=== PATIENT | female | born 1935 | race Hispanic/Latino ===

== ENCOUNTER → 2016-05-31 | Outpatient (CLI) | payer OTHER, MEDICAID ==
[2016-05-31 13:23] LABS: MEAN CORPUSCULAR HEMOGLOBIN 29.5 pg (27.0-33.0); MEAN CORPUSCULAR HGB CONC 32.3 g/dl (32.0-36.5); MEAN CORPUSCULAR VOLUME 91.4 fl (80.0-96.0); RED CELL DISTRIBUTION WIDTH 13.9 % (11.5-14.5)
[2016-05-31 14:07] LABS: ALBUMIN 3.8 GM/DL (3.2-5.2); ALKALINE PHOSPHATASE 76 U/L (45-117); ALT/SGPT 28 U/L (12-78); ANION GAP 9 MEQ/L (8-16); AST/SGOT 21 U/L (15-37); BILIRUBIN,TOTAL 0.3 MG/DL (0.2-1.0); BLOOD UREA NITROGEN 11 MG/DL (7-18); CALCIUM LEVEL 8.8 MG/DL (8.8-10.2); CARBON DIOXIDE LEVEL 28 MEQ/L (21-32); CHLORIDE LEVEL 107 MEQ/L (98-107); CREATININE FOR GFR 0.74 MG/DL (0.55-1.02); GLOMERULAR FILTRATION RATE > 60.0 (>39); GLUCOSE, FASTING 113 MG/DL (83-110); POTASSIUM SERUM 4.4 MEQ/L (3.5-5.1); SODIUM LEVEL 144 MEQ/L (136-145); TOTAL PROTEIN 7.6 GM/DL (6.4-8.2)
== END ==
LOC: M SMT 09:58
PROVIDERS: ATTEND Urology
DX: R10.9 Unspecified abdominal pain (principal)
CPT/HCPCS: 36415; 51798; 80053; 81001; 85027; 87088; 87186; G0463

== ENCOUNTER → 2016-06-14 | Outpatient (CLI) | payer OTHER, MEDICAID ==
[~2016-06-14] MED LIST: ISOVUE-370 76% 100ML VIAL (Q9967) As Ordered ONE
--- NOTE | 2016-06-14 17:16 | REP ---
CT urogram without and with IV contrast: History: Left flank pain. CT contrast dose: 100 ml of Isovue [address] findings: Preliminary digital instrumentation technician radiograph is unremarkable. The lung bases show ground-glass opacity and interstitial fibrosis pattern in the lower lobes bilaterally. No pleural effusion is seen. The liver and the spleen are normal in size and homogeneous in texture on pre- and postcontrast CT images. No focal hepatic lesion is seen. The gallbladder and the pancreas are unremarkable. No adrenal lesion is observed on either side. There are two calcifications in the central renal sinus fat on the left kidney. One of these is felt to be most likely vascular. The other is a 2-3 mm calculus at the corticomedullary junction at the mid pole level of the left kidney consistent with an intrarenal nephrolith. There is no evidence of hydronephrosis on either side. Vascular calcification is seen. Normal caliber aorta. A normal appendix is seen. The patient is status post hysterectomy. No urinary calculus or bladder lesions seen. Mild diverticulosis in the sigmoid colon. No abdominal wall defect is observed. The kidneys enhance symmetrically. No renal mass lesion is observed. Delayed images show no filling defect in the collecting system on either side. Ureters describe a normal course to the bladder. No bony destructive lesion is seen. Impression: 1. 2-3 mm intrarenal calculus left mid kidney. No other significant urinary tract abnormality. 2. Interstitial disease in the lung bases bilaterally. 3. Vascular calcification. Signed by Dirk Hollis MD 06/15/2016 09:29 A
--- NOTE | 2016-06-15 01:54 | REP ---
Clinical: Left flank pain. Comparison: 03/09/2016. Findings: Mediastinum and cardiac silhouette are normal. Left lower lobe atelectasis suggested. No obvious effusion or pneumothorax. Skeletal structures demonstrate age-related changes. Impression: Chronic changes. Subtle superimposed left lower lobe atelectasis suggested. Signed by Ronnie Nunez MD 06/15/2016 01:45 A
== END ==
LOC: M RAD 10:57
PROVIDERS: ATTEND Urology
DX: I70.0 Atherosclerosis of aorta (principal); N20.0 Calculus of kidney; J84.9 Interstitial pulmonary disease, unspecified; R10.9 Unspecified abdominal pain
CPT/HCPCS: 71010; 74178; Q9967

== ENCOUNTER → 2016-06-18 | Outpatient (REF) | payer OTHER | LOC: M SMT 13:50 → EEVIPCON 13:50 | PROVIDERS: ATTEND Urology | DX: R31.9 Hematuria, unspecified (principal) | CPT/HCPCS: 81001; 87088; 87186; G0463 ==

== ENCOUNTER → 2016-06-22 | Outpatient (REF) | payer OTHER | LOC: M LAB REF 16:49 | PROVIDERS: ATTEND Family Medicine | DX: C44.529 Squamous cell carcinoma of skin of other part of trunk (principal); L82.1 Other seborrheic keratosis ==

== ENCOUNTER → 2016-07-10 | Outpatient (REF) | payer OTHER | LOC: M SMT 12:45 | PROVIDERS: ATTEND Urology | DX: R10.9 Unspecified abdominal pain (principal) ==

== ENCOUNTER → 2016-07-12 | Outpatient (REF) | payer OTHER, MEDICAID | LOC: M SMT 12:45 | PROVIDERS: ATTEND Urology | DX: N39.0 Urinary tract infection, site not specified (principal) | CPT/HCPCS: 81001; 87088; 87186; G0463 ==

== ENCOUNTER → 2016-07-31 | Outpatient (REF) | payer OTHER, MEDICAID | LOC: M LAB REF 13:11 | PROVIDERS: ATTEND Physician Assistant Medical | DX: R30.0 Dysuria (principal) ==

== ENCOUNTER → 2016-08-03 | Outpatient (REF) | payer OTHER, MEDICAID | LOC: M SMT 16:55 | PROVIDERS: ATTEND Urology | DX: N39.0 Urinary tract infection, site not specified (principal) ==

== ENCOUNTER → 2016-08-27 | Outpatient (REF) | payer OTHER, MEDICAID | LOC: M SMT 12:57 | PROVIDERS: ATTEND Nurse Practitioner Women's Health | DX: N39.0 Urinary tract infection, site not specified (principal) | CPT/HCPCS: 51702; 87088; 87186; G0463 ==

== ENCOUNTER → 2016-09-21 | Outpatient (REF) | payer OTHER, MEDICAID | LOC: M SMT 13:05 | PROVIDERS: ATTEND Urology | DX: N39.0 Urinary tract infection, site not specified (principal) | CPT/HCPCS: 81001; 87088; 87186; G0463 ==

== ENCOUNTER → 2016-09-26 | Outpatient (REF) | payer OTHER, MEDICARE | LOC: M LAB REF 16:31 | PROVIDERS: ATTEND Physician Assistant | DX: R05 Cough (principal) ==

== ENCOUNTER → 2016-10-18 | Outpatient (CLI) | payer OTHER ==
--- NOTE | 2016-10-19 03:42 | REP ---
Clinical: Pain overlying the xyphoid process and right upper quadrant. Technique: Real time coleman scale and color ultrasound examination using linear high frequency and curved array transducers. Findings: The liver and pancreas are normal in contour, size, and echogenicity without focal hepatic or pancreatic lesions identified. The gallbladder is normal without gallstones, wall thickening or pericholecystic fluid. No biliary ductal dilatation is appreciated, and the common bile duct measures 7.0 mm diameter. The right kidney is normal in reniform shape without hydronephrosis and measures 10.6 x 5.1 x 5.2 cm. No ascites. Visualized portions of the abdominal aorta normal. Directed ultrasound examination overlying the xyphoid process demonstrates an underlying avascular hypoechoic lesion measuring 1.6 x 1.3 x 1.6 cm and is otherwise nonspecific by ultrasound; possibly intramuscular. Overall appearance by ultrasound is relatively benign and not threatening. Impression: 1. Normal right upper quadrant and gallbladder abdominal ultrasound. 2. 1.6 cm hypoechoic lesion at the level of the xyphoid process and site of pain/mass. Finding is nonspecific by ultrasound but appears relatively benign. If necessary consider postcontrast CT for further investigation. Signed by Ronnie Nunez MD 10/19/2016 03:34 A
== END ==
LOC: M RAD 09:49
PROVIDERS: ATTEND Family Medicine
DX: D48.1 Neoplasm of uncertain behavior of connective and other soft tissue (principal)

== ENCOUNTER → 2016-10-22 | Outpatient (REF) | payer OTHER, MEDICAID | LOC: M LAB REF 13:33 | PROVIDERS: ATTEND Urology | DX: N39.0 Urinary tract infection, site not specified (principal) | CPT/HCPCS: 81001; 87088; 87186; G0463 ==

== ENCOUNTER → 2017-06-17 | Outpatient (REF) | payer OTHER, MEDICAID ==
[2017-06-17 16:38] LABS: D-DIMER QUANT 480.5 ng/ml (<500)
[2017-06-17 16:48] LABS: ERYTHROCYTE SEDIMENTATION RATE 48 mm/hr (0-30)
[2017-06-17 16:57] LABS: BLOOD UREA NITROGEN 12 MG/DL (7-18); CREATININE FOR GFR 0.62 MG/DL (0.55-1.30); GLOMERULAR FILTRATION RATE > 60.0 (>32); GLUCOSE, FASTING 147 MG/DL (70-100)
[2017-06-17 16:58] LABS: ALBUMIN 3.5 GM/DL (3.2-5.2); ALKALINE PHOSPHATASE 73 U/L (45-117); ALT/SGPT 20 U/L (12-78); ANION GAP 7 MEQ/L (8-16); AST/SGOT 11 U/L (7-37); BILIRUBIN,TOTAL 0.2 MG/DL (0.2-1.0); C REACTIVE PROTEIN QUANTITATIV 0.61 MG/DL (0.00-0.30); CALCIUM LEVEL 8.5 MG/DL (8.8-10.2); CARBON DIOXIDE LEVEL 27 MEQ/L (21-32); CHLORIDE LEVEL 108 MEQ/L (98-107); CPK CREATINE PHOSPHOKINASE 41 U/L (26-192); MAGNESIUM LEVEL 2.1 MG/DL (1.8-2.4); POTASSIUM SERUM 4.5 MEQ/L (3.5-5.1); SODIUM LEVEL 142 MEQ/L (136-145); URIC ACID 6.1 MG/DL (2.6-6.0)
== END ==
LOC: M LABDRAW1 15:32
DX: M79.652 Pain in left thigh (principal)
CPT/HCPCS: 82550

== ENCOUNTER → 2017-08-21 | Outpatient (CLI) | payer OTHER, MEDICARE, MEDICAID | LOC: M PAIN 15:50 | DX: M25.562 Pain in left knee (principal); G89.29 Other chronic pain; E11.9 Type 2 diabetes mellitus without complications; E78.00 Pure hypercholesterolemia, unspecified; M19.90 Unspecified osteoarthritis, unspecified site; E07.9 Disorder of thyroid, unspecified; N39.0 Urinary tract infection, site not specified; Z79.899 Other long term (current) drug therapy; Z87.891 Personal history of nicotine dependence | CPT/HCPCS: G0463 ==

== ENCOUNTER → 2017-09-05 | Outpatient (REF) | payer OTHER, MEDICARE, MEDICAID | LOC: M LAB REF 13:35 | DX: R19.7 Diarrhea, unspecified (principal) | CPT/HCPCS: 87507 ==

== ENCOUNTER 2017-10-07 08:08 | Outpatient (RCR) | payer OTHER, MEDICAID | END 2017-11-02 | LOC: M PT 08:08 | DX: Z47.89 Encounter for other orthopedic aftercare (principal); M23.262 Derangement of other lateral meniscus due to old tear or injury, left knee | CPT/HCPCS: 97110 ==

== ENCOUNTER → 2017-10-31 | Outpatient (REF) | payer OTHER, MEDICAID ==
[2017-10-31 13:47] LABS: BASO % 0.3 % (0.0-1.0); EOS # 0.1 10^3/uL (0.0-0.50); EOS % 1.2 % (0.0-3.0); HEMATOCRIT 35.9 % (36.0-47.0); HEMOGLOBIN 11.5 g/dl (12.0-15.5); IMMATURE GRANULOCYTE % 0.4 % (0-3.0); LYMPH # 2.3 10^3/uL (1.5-4.5); LYMPH % 29.2 % (24.0-44.0); MEAN CORPUSCULAR VOLUME 96.8 fl (80.0-96.0); MONO # 0.4 10^3/uL (0.0-0.8); MONO % 5.4 % (0.0-5.0); NEUTROPHILS % 63.5 % (36.0-66.0); PLATELET COUNT, AUTOMATED 230 10^3/uL (150-450); RED BLOOD COUNT 3.71 10^6/uL (4.00-5.40); RED CELL DISTRIBUTION WIDTH 12.9 % (11.5-14.5); WHITE BLOOD COUNT 7.8 10^3/uL (4.0-10.0)
[2017-10-31 13:57] LABS: ALBUMIN 3.4 GM/DL (3.2-5.2); ALBUMIN/GLOBULIN RATIO 0.87 (1.00-1.93); ALKALINE PHOSPHATASE 60 U/L (45-117); ALT/SGPT 18 U/L (12-78); ANION GAP 6 MEQ/L (8-16); AST/SGOT 12 U/L (7-37); BILIRUBIN,TOTAL 0.2 MG/DL (0.2-1.0); BLOOD UREA NITROGEN 15 MG/DL (7-18); C REACTIVE PROTEIN QUANTITATIV 1.58 MG/DL (0.00-0.30); CALCIUM LEVEL 8.6 MG/DL (8.8-10.2); CARBON DIOXIDE LEVEL 29 MEQ/L (21-32); CHLORIDE LEVEL 109 MEQ/L (98-107); CREATININE FOR GFR 0.76 MG/DL (0.55-1.30); GLOMERULAR FILTRATION RATE > 60.0 (>32); GLUCOSE, FASTING 68 MG/DL (70-100); POTASSIUM SERUM 4.4 MEQ/L (3.5-5.1); RHEUMATOID FACTOR QUANT < 10.0 IU/ML (<15.0); SODIUM LEVEL 144 MEQ/L (136-145); TOTAL PROTEIN 7.3 GM/DL (6.4-8.2); URIC ACID 5.8 MG/DL (2.6-6.0)
[2017-10-31 14:31] LABS: ERYTHROCYTE SEDIMENTATION RATE 69 mm/hr (0-30)
[2017-11-02 00:08] LABS: Lyme Disease IgG/IgM Antibodie <0.91 ISR (0.00-0.90); Lyme Disease IgM Ab Quantitati <0.80 index (0.00-0.79)
== END ==
LOC: M LABDRAW1 13:26
DX: Z47.89 Encounter for other orthopedic aftercare (principal)
CPT/HCPCS: 84550

== ENCOUNTER → 2017-11-07 | Outpatient (REF) | payer OTHER, MEDICAID | LOC: M LAB REF 16:46 | DX: Z47.89 Encounter for other orthopedic aftercare (principal) | CPT/HCPCS: 87205 ==

== ENCOUNTER 2017-11-13 11:28 | Outpatient (RCR) | payer OTHER, MEDICAID | END 2017-12-03 | LOC: M PT 11:28 | DX: Z47.89 Encounter for other orthopedic aftercare (principal); M23.262 Derangement of other lateral meniscus due to old tear or injury, left knee | CPT/HCPCS: 97110 ==

== ENCOUNTER → 2018-09-03 | Outpatient (CLI) | payer MEDICARE, MEDICAID ==
--- NOTE | 2018-09-04 03:52 | REP ---
Clinical: Transient ischemic attack and dizziness . Technique: Paez scale and color Doppler evaluation using linear high frequency transducer Findings: Two-dimensional paez scale and color images demonstrate mild/moderate mixed atheromatous plaquing with laminar flow and no appreciable narrowing. Color Doppler interrogation demonstrates normal arterial wave patterns and velocities with no significant spectral broadening. Normal flow direction is appreciated in the bilateral vertebral arteries. RIGHT (cm/s) LEFT (cm/s) ICA peak systolic velocity 108.0 77.5 ICA diastolic velocity 31.7 23.2 ECA peak systolic velocity 72.9 113.0 CCA peak systolic velocity 79.3 13.0 ICA/CCA ratio 1.36 0.60 Impression: No hemodynamically significant areas of narrowing or stenosis appreciated. Based on set standards narrowing falls within the less than 50% range. Electronically Signed by Ronnie Nunez MD 09/04/2018 03:43 A
== END ==
LOC: M RAD 17:06
PROVIDERS: ATTEND Family Medicine
DX: R42 Dizziness and giddiness (principal); Z86.73 Personal history of transient ischemic attack (TIA), and cerebral infarction without residual deficits

== ENCOUNTER → 2019-01-20 | Outpatient (CLI) | payer MEDICARE, MEDICAID ==
[~2019-01-20] MED LIST changes: +ALEV220T22 PO; +ASPI1CAP3 PO; +ASPI81TA33 PO; +BUDE0.5S6 INH; +LEVO100T5 PO; +MECL1TAB31 PO; +ROSU20TA5 PO; +TRES1INJ SQ; +TYLE650T38 PO; +VICT18IN2 SQ
--- NOTE | 2019-01-20 14:41 | REPVR ---
EXAM: CT Angiography Head With Contrast EXAM DATE/TIME: 01/20/2019 12:19 PM CLINICAL HISTORY: 83 years old, female; Condition or disease; Occlusion or stenosis of cerebral arteries; Additional info: Carotid stenosis, small vessel disease TECHNIQUE: Imaging protocol: Computed tomography angiography of the head with intravenous contrast. 3D rendering: MIP reconstructed images were created and reviewed. Radiation optimization: All CT scans at this facility use at least one of these dose optimization techniques: automated exposure control; mA and/or kV adjustment per patient size (includes targeted exams where dose is matched to clinical indication); or iterative reconstruction. Contrast material: ISOVUE 370; Contrast volume: 75 ml; Contrast route: IV; COMPARISON: No relevant prior studies available. FINDINGS: Right internal carotid artery: Unremarkable. Intracranial segment is patent with no significant stenosis. No aneurysm. Right anterior cerebral artery: Unremarkable. No occlusion or significant stenosis. No aneurysm. Right middle cerebral artery: Unremarkable. No occlusion or significant stenosis. No aneurysm. Right posterior cerebral artery: There is origin of the right posterior cerebral artery. Right vertebral artery: Unremarkable. No occlusion or significant stenosis. No aneurysm. Left internal carotid artery: Unremarkable. Intracranial segment is patent with no significant stenosis. No aneurysm. Left anterior cerebral artery: Unremarkable. No occlusion or significant stenosis. No aneurysm. Left middle cerebral artery: Unremarkable. No occlusion or significant stenosis. No aneurysm. Left posterior cerebral artery: Unremarkable. No occlusion or significant stenosis. No aneurysm. Left vertebral artery: Unremarkable. No occlusion or significant stenosis. No aneurysm. Basilar artery: Unremarkable. No occlusion or significant stenosis. No aneurysm. Other vasculature: There is moderate calcification of the carotid siphons. No evidence of an acute intracranial vascular abnormality. 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 IMPRESSION: 1. There is origin of the right posterior cerebral artery. 2. No evidence of an acute intracranial vascular abnormality. Electronically signed by: Jeffrey Duncan On 01/20/2019 14:40:55 PM
--- NOTE | 2019-01-20 14:46 | REPVR ---
EXAM: CT Angiography Neck With Contrast EXAM DATE/TIME: 01/20/2019 12:19 PM CLINICAL HISTORY: 83 years old, female; Condition or disease; Occlusion or stenosis of cerebral arteries; Additional info: Carotid stenosis, small vessel disease TECHNIQUE: Imaging protocol: Computed tomographic angiography images of the neck with intravenous contrast using CT angiography protocol. 3D rendering: MIP reconstructed images were created and reviewed. Radiation optimization: All CT scans at this facility use at least one of these dose optimization techniques: automated exposure control; mA and/or kV adjustment per patient size (includes targeted exams where dose is matched to clinical indication); or iterative reconstruction. Contrast material: ISOVUE 370; Contrast volume: 75 ml; Contrast route: IV; COMPARISON: US Duplex,carotid (complete) 09/03/2018 5:15 PM FINDINGS: VASCULATURE: Right common carotid artery: Unremarkable. No stenosis. No dissection or occlusion. Right internal carotid artery: There is mild calcification of the right internal carotid origin with less than 50% compromise of the lumen. Right external carotid artery: Unremarkable. No occlusion or stenosis of the origin. Right vertebral artery: There is a dominant right vertebral artery without evidence of stenosis or dissection. Left common carotid artery: Unremarkable. No stenosis. No dissection or occlusion. Left internal carotid artery: There is mild calcification of the left internal carotid origin with less than 50% compromise of the lumen. Left external carotid artery: Unremarkable. No occlusion or stenosis of the origin. Left vertebral artery: Unremarkable. No stenosis. No dissection or occlusion. Other vasculature: The vasculature demonstrates diffuse moderate atherosclerotic calcification. NECK: Thyroid: The thyroid gland is normal. Bones/joints: The spine demonstrates mild degenerative changes at multiple levels. Soft tissues: Normal. No significant soft tissue swelling. Lymph nodes: There are numerous prominent but non-pathologic lymph nodes in the neck. There are no nodes of pathologic dimensions. Lungs: Patchy density mosaic lung pattern suggests small airways disease. IMPRESSION: 1. There is mild calcification of the right internal carotid origin with less than 50% compromise of the lumen. 2. There is mild calcification of the left internal carotid origin with less than 50% compromise of the lumen. 3. There is a dominant right vertebral artery without evidence of stenosis or dissection. COMMENT: Reference per NASCET criteria for degree of stenosis: Mild: less than 50% stenosis. Moderate: 50-69% stenosis. Severe: 70-94% stenosis. Near occlusion: 95-99% stenosis. Electronically signed by: Jeffrey Duncan On 01/20/2019 14:45:46 PM
== END ==
LOC: M RAD 11:33
PROVIDERS: ATTEND Neurological Surgery
DX: I65.23 Occlusion and stenosis of bilateral carotid arteries (principal)
CPT/HCPCS: 70496; 70498; Q9967

== ENCOUNTER 2019-02-24 10:58 | Emergency (ER) | payer MEDICARE, MEDICAID ==
[2019-02-24] MEDS ORDERED: ONDANSETRON 4MG/2ML VIAL (J2405) IV ONE (11:15)
[2019-02-24] MEDS ORDERED: TRES1INJ SQ (11:17)
[2019-02-24] MEDS ORDERED: BUDE0.5S6 INH (11:17)
[2019-02-24] MEDS ORDERED: LEVO100T5 PO (11:17)
[2019-02-24] MEDS ORDERED: ROSU20TA5 PO (11:17)
[2019-02-24] MEDS ORDERED: ASPI1CAP3 PO (11:17)
[2019-02-24] MEDS ORDERED: ASPI81TA33 PO (11:17)
[2019-02-24] MEDS ORDERED: VICT18IN2 SQ (11:17)
[2019-02-24 11:23] LABS: BASO % 0.2 % (0.0-1.0); EOS # 0.1 10^3/uL (0.0-0.5); EOS % 0.7 % (0.0-3.0); HEMATOCRIT 34.3 % (36.0-47.0); HEMOGLOBIN 11.2 g/dl (12.0-15.5); LYMPH # 2.3 10^3/uL (1.5-5.0); LYMPH % 28.2 % (24.0-44.0); MEAN CORPUSCULAR HGB CONC 32.7 g/dl (32.0-36.5); MONO # 0.3 10^3/uL (0.0-0.8); MONO % 3.9 % (0.0-5.0); NEUTROPHILS # 5.3 10^3/uL (1.5-8.5); NEUTROPHILS % 66.3 % (36.0-66.0); PLATELET COUNT, AUTOMATED 169 10^3/uL (150-450); RED BLOOD COUNT 3.61 10^6/uL (4.00-5.40)
[2019-02-24] MEDS ORDERED: MECLIZINE 25 MG TABLET PO ONE (11:30)
[2019-02-24 11:34] LABS: INR 1.17; PROTHROMBIN TIME 14.7 SECONDS (11.8-14.0)
[2019-02-24 11:35] LABS: PARTIAL THROMBOPLASTIN TIME 27.8 SECONDS (25.0-38.4)
--- NOTE | 2019-02-24 11:42 | REP ---
CT brain: 02/24/2019. Indication: Stroke. Comparison: None. Technique: Unenhanced axial CT images of the brain were obtained from skull base to vertex. Findings: There is no acute intracranial hemorrhage, acute cortical infarction, mass effect or hydrocephalous. Age-related volume loss is present. There are a few small patchy areas of white matter hypoattenuation throughout the white matter most consistent with sequelae of chronic small vessel disease. Bilateral colobomas are noted. Impression: No acute intracranial process. Electronically Signed by Bert Kay DO 02/24/2019 11:34 A
--- NOTE | 2019-02-24 11:51 | REP ---
CHEST SINGLE VIEW: There is no evidence of acute infiltrate. No pleural effusion is seen. The heart is normal in size. The mediastinal silhouette is unremarkable. The visualized osseous structures are intact. There is calcification of the thoracic aorta. IMPRESSION: No acute pulmonary disease. Electronically Signed by James Paez MD 02/25/2019 11:46 A
[2019-02-24 12:00] LABS: BLOOD UREA NITROGEN 18 MG/DL (7-18); CALCIUM LEVEL 8.9 MG/DL (8.8-10.2); CARBON DIOXIDE LEVEL 23 MEQ/L (21-32); CHLORIDE LEVEL 110 MEQ/L (98-107); CK-MB VALUE MASS < 1.0 NG/ML (<3.6); CPK CREATINE PHOSPHOKINASE 112 U/L (26-192); CREATININE FOR GFR 0.82 MG/DL (0.55-1.30); GLOMERULAR FILTRATION RATE > 60.0 (>32); GLUCOSE, FASTING 140 MG/DL (70-100); MB/CK RELATIVE INDEX 0.89 (< OR =4); POTASSIUM SERUM 5.3 MEQ/L (3.5-5.1); SODIUM LEVEL 141 MEQ/L (136-145); TROPONIN I < 0.02 NG/ML (< 0.10)
--- NOTE | 2019-02-24 13:24 | REP ---
MRI brain: 02/24/2019. Indication: Stroke. Comparison: New no previous MRI studies are available for direct comparison. Technique: Multiplanar short and long TR sequences of the brain were performed without IV Gadolinium. Findings: There are no areas of restricted diffusion. There is no intracranial mass effect or hydrocephalous. Age-related volume loss is present. There is no evidence of intracranial hemorrhage. There are scattered foci of elevated T2 signal within the white matter. The midline structures, and craniocervical junction are unremarkable. Chronic-appearing pontine lacunar infarctions are noted. Impression: No acute intracranial process. 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 Electronically Signed by Bert Kya DO 02/24/2019 01:17 P
--- NOTE | 2019-02-24 13:34 | REP ---
Intracranial MRA: 2018. Indication: Stroke. Comparison: None. Technique: 3-D [id number] imaging of the intracranial vessels are performed with rotational 3-D images provided. 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 No additional areas of significant stenosis are detected. There is no intracranial aneurysm or AVM. 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 Electronically Signed by Bert Kay DO 02/24/2019 01:26 P
[2019-02-24] MEDS ORDERED: TYLE650T38 PO (13:50)
[2019-02-24] MEDS ORDERED: ALEV220T22 PO (13:50)
[2019-02-24] MEDS ORDERED: MECL-68 PO (13:57)
[2019-02-24 14:04] VITALS: BP 177/78
--- NOTE | 2019-02-24 14:34 | ECGEPIP ---
[facility] - ED Test Date: 2019-02-24 Pat Name: KIMBERLEE MULTANI Department: Room: - Gender: Female Warning Coordination Meteorologist: CT : 1935 Requested By: Melissa Tapia Order Number: [id number] Reading MD: Mila Stewart Measurements Intervals [facility] Rate: 59 P: 30 WV: 133 QRS: -26 QRSD: 134 T: 56 QT: 465 QTc: 461 Interpretive Statements SINUS BRADYCARDIA RIGHT BUNDLE BRANCH BLOCK POSSIBLE SEPTAL MYOCARDIAL INFARCTION, OF INDETERMINATE AGE Electronically Signed on 02-24-2019 14:33:54 EDT by Mila Stewart
== END 2019-02-24 14:08 | disposition home or self-care (01) ==
LOC: M ED 10:58 → EDBD 10:58 → M ED 14:08
DX: R42 Dizziness and giddiness (principal); I45.10 Unspecified right bundle-branch block; E10.9 Type 1 diabetes mellitus without complications; E03.9 Hypothyroidism, unspecified; E78.9 Disorder of lipoprotein metabolism, unspecified; Z79.899 Other long term (current) drug therapy; Z79.890 Hormone replacement therapy; Z79.82 Long term (current) use of aspirin; Z79.4 Long term (current) use of insulin; Z87.891 Personal history of nicotine dependence
CPT/HCPCS: 70450; 70544; 70551; 71045; 80048; 82550; 82553; 84484; 85025; 85610; 85730; 86850; 86900; 86901; 93005; 93041; 94760; 96374; 99291; J2405

== ENCOUNTER → 2019-07-22 | Outpatient (REF) | payer MEDICARE, MEDICAID ==
[~2019-07-22] MED LIST changes: -ISOVUE-370 76% 100ML VIAL (Q9967) As Ordered ONE
== END ==
LOC: M LAB REF 16:46
PROVIDERS: ATTEND Family Medicine
DX: R30.0 Dysuria (principal)

== ENCOUNTER → 2020-10-05 | Outpatient (REF) | payer MEDICARE, MEDICAID ==
[2020-10-05 19:11] LABS: APPEARANCE, URINE CLOUDY (CLEAR); BACTERIA, URINE AUTO 2+ (NEGATIVE); BILIRUBIN, URINE AUTO 1+ (NEGATIVE); BLOOD, URINE BLOOD 2+ (NEGATIVE); COLOR, URINE AMBER (YELLOW); GLUCOSE, URINE (UA) AUTO NEGATIVE (NEGATIVE); KETONE, URINE AUTO NEGATIVE (NEGATIVE); LEUKOCYTE ESTERASE, URINE AUTO TRACE (NEGATIVE); MUCUS, URINE SMALL (NEGATIVE); NITRITE, URINE AUTO NEGATIVE (NEGATIVE); PROTEIN, URINE AUTO 2+ mg/dL (NEGATIVE); RBC, URINE AUTO 17 /HPF (0-3); SPECIFIC GRAVITY URINE AUTO 1.026 (1.002-1.035); SQUAMOUS EPITHELIAL CELL UR AU 1 /HPF (0-6); UROBILINOGEN, URINE AUTO 0.2 mg/dL (0.0-2.0); WBC, URINE AUTO 7 /HPF (0-3)
== END ==
LOC: M LAB REF 18:15
PROVIDERS: ATTEND Physician Assistant
DX: N39.0 Urinary tract infection, site not specified (principal)

== ENCOUNTER → 2020-10-18 | Outpatient (REF) | payer MEDICARE, MEDICAID ==
[2020-10-18 17:17] LABS: APPEARANCE, URINE HAZY (CLEAR); BACTERIA, URINE AUTO NEGATIVE (NEGATIVE); BILIRUBIN, URINE AUTO NEGATIVE (NEGATIVE); BLOOD, URINE BLOOD NEGATIVE (NEGATIVE); COLOR, URINE YELLOW (YELLOW); GLUCOSE, URINE (UA) AUTO NEGATIVE (NEGATIVE); KETONE, URINE AUTO TRACE mg/dL (NEGATIVE); LEUKOCYTE ESTERASE, URINE AUTO TRACE (NEGATIVE); MUCUS, URINE SMALL (NEGATIVE); NITRITE, URINE AUTO NEGATIVE (NEGATIVE); PROTEIN, URINE AUTO 1+ mg/dL (NEGATIVE); RBC, URINE AUTO 1 /HPF (0-3); SQUAMOUS EPITHELIAL CELL UR AU 5 /HPF (0-6); UROBILINOGEN, URINE AUTO 0.2 mg/dL (0.0-2.0); WBC, URINE AUTO 5 /HPF (0-3)
== END ==
LOC: M LAB REF 16:29
PROVIDERS: ATTEND Physician Assistant Medical
DX: R30.0 Dysuria (principal)

== ENCOUNTER → 2020-11-18 | Outpatient (CLI) | payer MEDICARE, MEDICAID ==
--- NOTE | 2020-11-18 15:03 | REP ---
INDICATION: Assess stenosis TECHNIQUE: Carotid ultrasonography was performed bilaterally FINDINGS: Right: CCA systolic: 73.5 centimeters/second CCA diastolic: 15.4 centimeters/second ICA systolic: 78.5 centimeters/second ICA diastolic: 18.2 centimeters/second ICA CCA ratio: 1.07 Left: CCA systolic: 105.2 centimeters/second CCA diastolic: 13.5 centimeters/second ICA systolic: 79.8 centimeters/second ICA diastolic: 18.4 centimeters/second ICA CCA ratio: 0.76 Vertebral artery: Right: Antegrade flow left: Antegrade flow Linear and patchy echogenic material is seen along the carotid arterial sanchez some of which casts in acoustic shadow consistent with calcific deposition. IMPRESSION: According to the SRU criteria there is less than 50% stenosis of the internal carotid artery bilaterally. This is secondary to both calcified and noncalcified atheromatous plaque formation. <Electronically signed by Navdeep Brasher > 11/18/20 [id number]
== END ==
LOC: M RAD 12:50
PROVIDERS: ATTEND Family Medicine
DX: I67.2 Cerebral atherosclerosis (principal); D48.1 Neoplasm of uncertain behavior of connective and other soft tissue; I65.23 Occlusion and stenosis of bilateral carotid arteries

== ENCOUNTER → 2020-12-14 | Outpatient (REF) | payer MEDICARE, MEDICAID ==
[2020-12-14 17:33] LABS: BLOOD UREA NITROGEN 30 MG/DL (7-18); CREATININE FOR GFR 0.91 MG/DL (0.55-1.30); GLOMERULAR FILTRATION RATE > 60.0 (>32); GLUCOSE, FASTING 119 MG/DL (70-100); SODIUM LEVEL 143 MEQ/L (136-145)
[2020-12-14 17:34] LABS: ALT/SGPT 26 U/L (12-78); BILIRUBIN,TOTAL 0.2 MG/DL (0.2-1.0); CALCIUM LEVEL 9.4 MG/DL (8.8-10.2); CARBON DIOXIDE LEVEL 26 MEQ/L (21-32); CHLORIDE LEVEL 111 MEQ/L (98-107); CHOLESTEROL LEVEL 108 MG/DL (<200); CHOLESTEROL RISK RATIO 2.634 (<5); FREE T4 1.21 NG/DL (0.76-1.46); HDL CHOLESTEROL 41 MG/DL (>40); LDL CHOLESTEROL 32 MG/DL (<100); NON-HDL-C 67 MG/DL; POTASSIUM SERUM 5.3 MEQ/L (3.5-5.1); THYROID STIMULATING HORMONE 0.401 uIU/ML (0.358-3.740); TOTAL PROTEIN 7.5 GM/DL (6.4-8.2); TRIGLYCERIDES LEVEL 176 MG/DL (<150); VITAMIN B12 LEVEL 1404 PG/ML (247-911)
[2020-12-14 18:40] LABS: HEMOGLOBIN A1c 6.1 %
[2020-12-15 20:05] LABS: BASO % 0.2 % (0.0-1.0); EOS % 0.5 % (0.0-3.0); HEMATOCRIT 36.3 % (36.0-47.0); HEMOGLOBIN 11.6 g/dl (12.0-15.5); LYMPH # 2.4 10^3/uL (1.5-5.0); MEAN CORPUSCULAR HEMOGLOBIN 30.5 pg (27.0-33.0); MEAN CORPUSCULAR VOLUME 95.5 fl (80.0-96.0); MONO # 0.3 10^3/uL (0.0-0.8); MONO % 5.8 % (2.0-8.0); NEUTROPHILS # 2.8 10^3/uL (1.5-8.5); NEUTROPHILS % 50.3 % (36.0-66.0); PLATELET COUNT, AUTOMATED 143 10^3/uL (150-450); WHITE BLOOD COUNT 5.5 10^3/uL (4.0-10.0)
== END ==
LOC: M LAB REF 16:25
PROVIDERS: ATTEND Family Medicine
DX: E11.40 Type 2 diabetes mellitus with diabetic neuropathy, unspecified (principal); E03.9 Hypothyroidism, unspecified; D51.9 Vitamin B12 deficiency anemia, unspecified; H34.11 Central retinal artery occlusion, right eye

== ENCOUNTER → 2020-12-14 | Outpatient (REF) | payer MEDICARE, MEDICAID | LOC: M LAB REF 14:43 | PROVIDERS: ATTEND Physician Assistant Medical | DX: R53.83 Other fatigue (principal); Z79.899 Other long term (current) drug therapy ==

== ENCOUNTER → 2021-02-09 | Outpatient (CLI) | payer MEDICARE, MEDICAID ==
[~2021-02-09] MED LIST changes: +CLOP75TA2 PO
--- NOTE | 2021-02-09 13:28 | REP ---
INDICATION: ABN FINDINGS OF LUNG FIELD COMPARISON: None. TECHNIQUE: Standard helical technique without intravenous contrast administration. This causes exam limitations. FINDINGS: There is no gross mediastinal or hilar adenopathy. There are no pleural or pericardial effusions. The imaged upper abdomen is essentially unchanged from the abdominal and pelvic CT of 10/20/2020. No acute abnormalities are identified. The imaged osseous structures are within normal limits for the patient's age. Evaluation of the lung briceno shows scattered interstitial and airspace opacities particular to the lung bases and in a fashion essentially unchanged from lung base images obtained during CT of the abdomen and pelvis on 10/20/2020. These opacities could obscure a significant nodule. No well-defined nodule or spiculated masses identified. IMPRESSION: Findings, as described above, consistent with interstitial lung disease. <Electronically signed by Navdeep Brasher > 02/09/21 [id number]
== END ==
LOC: M RAD 13:00
PROVIDERS: ATTEND Internal Medicine Pulmonary Disease
DX: R91.8 Other nonspecific abnormal finding of lung field (principal)

== ENCOUNTER → 2021-02-16 | Outpatient (CLI) | payer MEDICARE, MEDICAID ==
--- NOTE | 2021-02-09 13:28 | REP ---
INDICATION: ABN FINDINGS OF LUNG FIELD COMPARISON: None. TECHNIQUE: Standard helical technique without intravenous contrast administration. This causes exam limitations. FINDINGS: There is no gross mediastinal or hilar adenopathy. There are no pleural or pericardial effusions. The imaged upper abdomen is essentially unchanged from the abdominal and pelvic CT of 10/20/2020. No acute abnormalities are identified. The imaged osseous structures are within normal limits for the patient's age. Evaluation of the lung briceno shows scattered interstitial and airspace opacities particular to the lung bases and in a fashion essentially unchanged from lung base images obtained during CT of the abdomen and pelvis on 10/20/2020. These opacities could obscure a significant nodule. No well-defined nodule or spiculated masses identified. IMPRESSION: Findings, as described above, consistent with interstitial lung disease. <Electronically signed by Navdeep Brasher > 02/09/21 0164
--- NOTE | 2021-02-16 10:57 | PFTRPT ---
Height: 60.00 Inches Weight: 130.00 Lbs BSA: 1.55 Diagnosis: R91.8 DATE: 02/16/2021 ORDERING PHYSICIAN: Teresa Mark MD Pre and post bronchodilator studies have excellent technical quality. Some difficulty with effort is noted. Forced vital capacity is normal. FEV1 is in proportion. Obstructive index is therefore normal. Expiratory limit of the flow-volume loop is normal. No significant bronchodilator response is identified. Total lung capacity is normal. Residual volume is generally in proportion. Diffusing capacity although reduced is appropriate for alveolar volume. Hemoglobin is reduced at 10.1. Airway resistance and conductance are normal. IMPRESSION: Anemia, otherwise reasonably normal study. Please correlate clinically. MTDD
== END ==
LOC: M CARPUL 02-09 12:56
PROVIDERS: ATTEND Internal Medicine Pulmonary Disease
DX: R91.8 Other nonspecific abnormal finding of lung field (principal)

== ENCOUNTER → 2021-03-09 | Outpatient (CLI) | payer MEDICARE, MEDICAID ==
[2021-03-09 13:39] LABS: BASO % 0.3 % (0.0-1.0); EOS # 0.1 10^3/uL (0.0-0.5); EOS % 1.2 % (0.0-3.0); HEMATOCRIT 38.2 % (36.0-47.0); HEMOGLOBIN 11.9 g/dl (12.0-15.5); LYMPH # 1.6 10^3/uL (1.5-5.0); LYMPH % 24.5 % (24.0-44.0); MEAN CORPUSCULAR HEMOGLOBIN 30.6 pg (27.0-33.0); MEAN CORPUSCULAR HGB CONC 31.2 g/dl (32.0-36.5); MEAN CORPUSCULAR VOLUME 98.2 fl (80.0-96.0); MONO # 0.3 10^3/uL (0.0-0.8); MONO % 4.8 % (2.0-8.0); NEUTROPHILS # 4.6 10^3/uL (1.5-8.5); NEUTROPHILS % 68.4 % (36.0-66.0); PLATELET COUNT, AUTOMATED 140 10^3/uL (150-450); RED BLOOD COUNT 3.89 10^6/uL (4.00-5.40); WHITE BLOOD COUNT 6.7 10^3/uL (4.0-10.0)
[2021-03-09 13:59] LABS: ALBUMIN 3.7 GM/DL (3.2-5.2); ALT/SGPT 47 U/L (12-78); BILIRUBIN,TOTAL 0.3 MG/DL (0.2-1.0); BLOOD UREA NITROGEN 24 MG/DL (7-18); CALCIUM LEVEL 9.1 MG/DL (8.8-10.2); CARBON DIOXIDE LEVEL 28 MEQ/L (21-32); CHLORIDE LEVEL 107 MEQ/L (98-107); CREATININE FOR GFR 0.86 MG/DL (0.55-1.30); GLOMERULAR FILTRATION RATE > 60.0 (>32); GLUCOSE, FASTING 206 MG/DL (70-100); POTASSIUM SERUM 4.3 MEQ/L (3.5-5.1); SODIUM LEVEL 140 MEQ/L (136-145)
== END ==
LOC: M PLALAB 11:26
PROVIDERS: ATTEND Physician Assistant Medical
DX: D64.9 Anemia, unspecified (principal)

== ENCOUNTER 2021-05-05 15:51 | Emergency (ER) | payer MEDICARE, MEDICAID ==
[~2021-05-05] VITALS: Ht 165.1 cm; Wt 54.5 kg
[2021-05-05 16:17] VITALS: BP 130/59
[2021-05-05] MEDS ORDERED: ACETAMINOPHEN 325 MG TAB PO ONE (16:20)
[2021-05-05] MEDS ORDERED: CITA10TA5 (16:28)
--- NOTE | 2021-05-05 16:44 | REP ---
INDICATION: trauma COMPARISON: 02/24/2019 TECHNIQUE: Axial noncontrast images from the skull base to the thoracic inlet with coronal reformations. This CT examination was performed using the following dose reduction techniques: Automated exposure control, adjustment of mA and/or kv according to the patient's size, and use of iterative reconstruction technique. FINDINGS: Atrophy with periventricular leukomalacia and microvascular ischemic changes are appreciated. The ventricles and sulci are symmetric. Paez-white differentiation is maintained. Scattered punctate chronic calcifications are unchanged. There is no evidence for acute intracranial hemorrhage, mass/mass effect, pathology or infarction. No extra-axial fluid collection. Calvarium is intact. Paranasal sinuses and mastoid air cells are clear. IMPRESSION: Atrophy and microvascular ischemic changes. No acute intracranial hemorrhage, infarction, or mass/mass effect. <Electronically signed by Ronnie Nunez > 05/05/21 [id number]
--- NOTE | 2021-05-05 16:46 | REP ---
INDICATION: trauma COMPARISON: None. TECHNIQUE: Axial noncontrast images from the skull base to the thoracic inlet with coronal and sagittal re-formations This CT examination was performed using the following dose reduction techniques: Automated exposure control, adjustment of mA and/or kv according to the patient's size, and use of iterative reconstruction technique. FINDINGS: Age-related multilevel degenerative changes are appreciated. There is no evidence for acute fracture or compression injury. No subluxation. Alignment and lordosis maintained. Vertebral bodies are intact. Spinal canal is patent. Posterior elements and spinous processes are intact. Paravertebral soft tissues are normal. IMPRESSION: Multilevel degenerative spondylosis. No evidence for acute pathology or trauma/injury. <Electronically signed by Ronnie Nunez > 05/05/21 0802
--- NOTE | 2021-05-05 16:48 | REP ---
INDICATION: trauma COMPARISON: None. TECHNIQUE: Axial noncontrast images through the facial bones to include the mandible with coronal and sagittal re-formations. FINDINGS: The osseous structures are intact and there is no evidence for fracture or dislocation. Specifically, the bilateral zygomatic arches, nasal bones, and mandible including bilateral temporomandibular joints appear normal and symmetric. The sinuses and mastoid air cells are all well aerated and clear without fluid level to suggest occult trauma. The bilateral orbits including the globes and intraconal contents appear symmetric and normal. The surrounding soft tissues are grossly unremarkable. IMPRESSION: Normal maxillofacial CT. No evidence for acute pathology or trauma/injury. <Electronically signed by Ronnie Nunez > 05/05/21 [id number]
[2021-05-05] MEDS ORDERED: LIDOCAINE 2% MDV 20ML VIAL SC ONE (16:50)
--- NOTE | 2021-05-05 17:02 | REP ---
INDICATION: trauma COMPARISON: 02/24/2019 TECHNIQUE: PA and lateral. FINDINGS: The mediastinum and cardiac silhouette are stable and within normal limits for portable technique. The lung briceno demonstrate diffuse chronic changes without acute consolidation, effusion, or pneumothorax. The skeletal structures demonstrate age-related degenerative change. IMPRESSION: Chronic appearing changes. No obvious acute cardiopulmonary process. <Electronically signed by Ronnie Nunez > 05/05/21 [id number]
--- NOTE | 2021-05-05 17:08 | REP ---
INDICATION: trauma COMPARISON: None. TECHNIQUE: Internal rotation, external rotation, and Y view. FINDINGS: No acute fracture or dislocation. The acromioclavicular and glenohumeral joints are intact. No periarticular calcifications or degenerative changes are appreciated. Sub acromial space is normal. Surrounding soft tissues are unremarkable. IMPRESSION: No acute fracture or dislocation. <Electronically signed by Ronnie Nunez > 05/05/21 [id number]
--- NOTE | 2021-05-05 17:09 | REP ---
INDICATION: trauma COMPARISON: None. TECHNIQUE: AP, lateral, and swimmers views. FINDINGS: Alignment and kyphosis is maintained. Osteopenia and advanced degenerative changes are appreciated. No obvious acute fracture/compression injury or subluxation identified.. IMPRESSION: No obvious acute fracture/compression injury or subluxation. <Electronically signed by Ronnie Nunez > 05/05/21 [id number]
[2021-05-05] MEDS ORDERED: BOOSTRIX/ADACEL VACCINE (DIPHTH/PERTUSS/ACELL/TETANUS) 0.5ML SYR IM ONE (17:30)
[2021-05-05 18:07] VITALS: O2SAT 97
--- NOTE | 2021-05-05 18:36 | CR.PDOC ---
General Date of Consultation: May 05, 2021 Referring Provider: Mila Stewart MD Attending Physician: BRENDA PAK MD Consultation ENTERED IN ERROR. PLEASE DISREGARD. Vital Signs/I&O Vital Signs Date Time Temp Pulse Resp B/P (MAP) Pulse Ox O2 Delivery O2 Flow Rate FiO2 05/05/21 16:17 98.5 70 18 130/59 (82) 100 Room Air Allergies Coded Allergies: No Known Allergies (Unverified , 02/24/19) Home Medications Scheduled Aspirin (Aspirin EC) 81 Mg Tablet.dr, 81 MG PO DAILY, (Reported) Clopidogrel Bisulfate (Clopidogrel) 75 Mg Tablet, 1 TAB PO DAILY, (Reported) Insulin Degludec (Tresiba Flextouch U-200) 200 Unit/1 Ml Insuln.pen, 24 UNITS SQ QHS, (Reported) Levothyroxine Sodium (Levothyroxine Sodium) 100 Mcg Tablet, 100 MCG PO DAILY, (Reported) Rosuvastatin Calcium (Rosuvastatin Calcium) 20 Mg Tablet, 20 MG PO QHS, (Reported) Scheduled PRN Naproxen Sodium (Aleve) 220 Mg Tablet, 220 MG PO BID PRN for PAIN, (Reported) Miscellaneous Medications Citalopram Hydrobromide (Citalopram HBr) 10 Mg Tablet, (Reported) BRENDA PAK MD May 05, 2021 18:12
== END 2021-05-05 18:56 | disposition home or self-care (01) ==
LOC: M ED 15:51
DX: U07.1 COVID-19 (principal); S01.81XA Laceration without foreign body of other part of head, initial encounter; T14.8XXA Other injury of unspecified body region, initial encounter; W19.XXXA Unspecified fall, initial encounter; Y92.009 Unspecified place in unspecified non-institutional (private) residence as the place of occurrence of the external cause; Y93.9 Activity, unspecified; Y99.9 Unspecified external cause status; M47.812 Spondylosis without myelopathy or radiculopathy, cervical region; E11.9 Type 2 diabetes mellitus without complications; Z87.891 Personal history of nicotine dependence; Z79.82 Long term (current) use of aspirin; Z79.4 Long term (current) use of insulin; Z79.899 Other long term (current) drug therapy

== ENCOUNTER 2021-05-06 11:07 | Outpatient (CLI) | payer MEDICAID, MEDICARE ==
--- NOTE | 2021-05-05 18:35 | CR.PDOC ---
General Date of Consultation: May 05, 2021 Referring Provider: Mila Stewart MD Attending Physician: BRENDA PAK MD Consultation REASON FOR CONSULTATION/CHIEF COMPLAINT: covid-19 infection for MABs HISTORY OF PRESENT ILLNESS: 85 yo W with a history of DM, hypothryoidism, HLD whose tested positive for covid-19 on 04/30 and at that time she was negative, and then tested positiv e today. Unfortunately she also had a mechanical fall today for which she presented to the ED from the urgent care clinic where she was tested for covid- 19 and was found positive today 05/05, thankfully without any noted symptoms thus far without fever, chills, SOB, cough, congestion, chest pain, palpitations, dizziness, poor PO. In the ED, she is hemodynamically stable, afebrile and breathing comfortably on room air. Due to her having suffered a fall today, she had extensive imagine for which a head CT was negative for acute bleeding, fracture, infarction or mass effect, CT of C-spine was negative for acute pathology without fracture or subluxation, as was an XR of the thoracic spine. CXR was negative for acute cardiopulmonary pathology, while XR of her left shoulder was also negative for fracture or dislocations while a maxillofacial CT was also negative for acute fractures. The ED, is now consulting medicine for MABs infusion to reduce the risk of serious illness 2/2 covid-19 infection. ALLERGIES: Please see below. HOME MEDICATIONS: Please see below. 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 Former smoker stopped 2006 Denies alcohol Denies illicit drug use REVIEW OF SYSTEMS: 10 point ROS was reviewed and was negative unless noted elements in the HPI. PHYSICAL EXAMINATION: VITAL SIGNS: Please see below. GENERAL APPEARANCE: NAD HEENT: NCAT, EOMI, MMM, lac repaired with fresh stitches with scant blood on her lip with slight swelling RESPIRATORY: CTAB, no wheezing, rales or rhonchi CARDIOVASCULAR: RRR, no m/r/g ABDOMEN: Normoactive sounds, soft, NTND EXTREMITIES: WWP, no LE edema NEUROLOGICAL: CN 3-12 intact, moving all extremities, nonfocal examination PSYCHIATRIC: AOx3 LABORATORY DATA: None IMAGING: Reviewed ASSESSMENT: 85 yo W with a history of DM, hypothryoidism, HLD whose tested positive for covid-19 on 04/30 and at that time she was negative, and then tested positive today. Unfortunately she also had a mechanical fall today for which she presented to the ED from the urgent care clinic where she was tested for covid- 19 and was found positive today 05/05. Thankfully she did not sustain any traumatic injury from her fall. She has now been consented to receive MABs for covid-19 infection and will return for the infusion as she is now consented and all the orders are in. Allergies Coded Allergies: No Known Allergies (Unverified , 02/24/19) Home Medications Scheduled Aspirin (Aspirin EC) 81 Mg Tablet.dr, 81 MG PO DAILY, (Reported) Clopidogrel Bisulfate (Clopidogrel) 75 Mg Tablet, 1 TAB PO DAILY, (Reported) Insulin Degludec (Tresiba Flextouch U-200) 200 Unit/1 Ml Insuln.pen, 24 UNITS SQ QHS, (Reported) Levothyroxine Sodium (Levothyroxine Sodium) 100 Mcg Tablet, 100 MCG PO DAILY, (Reported) Rosuvastatin Calcium (Rosuvastatin Calcium) 20 Mg Tablet, 20 MG PO QHS, (Reporte d) Scheduled PRN Naproxen Sodium (Aleve) 220 Mg Tablet, 220 MG PO BID PRN for PAIN, (Reported) Miscellaneous Medications Citalopram Hydrobromide (Citalopram HBr) 10 Mg Tablet, (Reported) BRENDA PKA MD May 05, 2021 18:13
[~2021-05-06 11:07] MED LIST changes: +ALBUTEROL 90 MCG/ACT 8GM HFA INHALER INH PRN; +ALBUTEROL SULFATE 2.5 MG/0.5 ML INH NEB SOLN INH PRN; +CITA10TA5; +EPINEPHrine INJ 1 MG/ML 1ML AMP IM PRN; +diphenhydrAMINE 50MG/ML VIAL (J1200) IV PRN; +methylPREDNISolone 125MG 2ML VIAL IV PRN
[2021-05-06 11:53] VITALS: BP 151/61
[2021-05-06 12:23] VITALS: BP 126/60
[2021-05-06 12:53] VITALS: BP 134/81
[2021-05-06] MEDS ORDERED: BAMLANIVIMAB 700 MG, ETESEVIMAB 1,400 MG in NS 250 ML IV ONE (13:00)
[2021-05-06 13:53] VITALS: BP 157/67
== END 2021-05-06 14:44 | disposition home or self-care (01) ==
LOC: M OPCLI4 11:07
PROVIDERS: ATTEND Internal Medicine
DX: U07.1 COVID-19 (principal)

== ENCOUNTER → 2021-05-22 | Outpatient (CLI) | payer MEDICARE, OTHER ==
[~2021-05-22] MED LIST changes: -ALBUTEROL 90 MCG/ACT 8GM HFA INHALER INH PRN; -ALBUTEROL SULFATE 2.5 MG/0.5 ML INH NEB SOLN INH PRN; -CITA10TA5; +CITA10TA7; -EPINEPHrine INJ 1 MG/ML 1ML AMP IM PRN; -diphenhydrAMINE 50MG/ML VIAL (J1200) IV PRN; -methylPREDNISolone 125MG 2ML VIAL IV PRN
== END ==
LOC: M RAD 12:48
PROVIDERS: ATTEND Physician Assistant Medical
DX: R68.84 Jaw pain (principal); K02.9 Dental caries, unspecified

== ENCOUNTER → 2022-05-03 | Outpatient (CLI) | payer OTHER ==
[~2022-05-03] MED LIST changes: +ISOVUE-370 76% 100ML VIAL As Ordered ONE
== END ==
LOC: M RAD 09:11
PROVIDERS: ATTEND Psychiatry & Neurology Neurology
DX: M48.02 Spinal stenosis, cervical region (principal); I65.22 Occlusion and stenosis of left carotid artery
CPT/HCPCS: 70496; 70498; Q9967

== ENCOUNTER → 2022-07-24 | Outpatient (REF) | payer OTHER, MEDICARE, MEDICAID ==
[~2022-07-24] MED LIST changes: -ISOVUE-370 76% 100ML VIAL As Ordered ONE
[2022-07-24 12:14] LABS: CREATININE, URINE 138.7 MG/DL
[2022-07-24 12:15] LABS: MAU/CREAT RATIO 193.9 MCG/MG (0.0-30.0)
== END ==
LOC: M SHH 11:04
PROVIDERS: ATTEND Internal Medicine Hematology
DX: E11.69 Type 2 diabetes mellitus with other specified complication (principal); D47.2 Monoclonal gammopathy

== ENCOUNTER → 2022-07-30 | Outpatient (CLI) | payer OTHER, MEDICAID ==
[2022-07-30 13:21] LABS: BASO % 0.2 % (0.0-1.0); EOS # 0.1 10^3/uL (0.0-0.5); EOS % 0.9 % (0.0-3.0); HEMATOCRIT 27.9 % (36.0-47.0); HEMOGLOBIN 8.2 g/dl (12.0-15.5); LYMPH # 1.6 10^3/uL (1.5-5.0); LYMPH % 20.3 % (24.0-44.0); MEAN CORPUSCULAR HEMOGLOBIN 27.4 pg (27.0-33.0); MEAN CORPUSCULAR HGB CONC 29.4 g/dl (32.0-36.5); MEAN CORPUSCULAR VOLUME 93.3 fl (80.0-96.0); MONO # 0.3 10^3/uL (0.0-0.8); MONO % 3.9 % (2.0-8.0); NEUTROPHILS % 74.2 % (36.0-66.0); PLATELET COUNT, AUTOMATED 211 10^3/uL (150-450); RED BLOOD COUNT 2.99 10^6/uL (4.00-5.40)
[2022-07-30 14:25] LABS: FERRITIN 5.9 NG/ML (7.3-270.7)
[2022-07-30 20:26] LABS: HEMATOCRIT 27.9 % (36.0-47.0)
== END ==
LOC: M LAB 11:43
PROVIDERS: ATTEND Internal Medicine Hematology
DX: D64.9 Anemia, unspecified (principal)

== ENCOUNTER 2022-07-31 12:06 | Outpatient (CLI) | payer OTHER, MEDICAID ==
[~2022-07-31] VITALS: Ht 165.1 cm; Wt 55.0 kg
[2022-07-31 12:15] VITALS: BP 191/72
[2022-07-31 14:35] VITALS: BP 154/68
[2022-07-31 15:42] VITALS: BP 148/64
== END 2022-07-31 15:50 ==
LOC: M INFU 12:06
PROVIDERS: ATTEND Internal Medicine Hematology
DX: D64.9 Anemia, unspecified (principal)
CPT/HCPCS: 36430; 36592; 86850; 86900; 86901; 86920; P9016

== ENCOUNTER 2022-08-06 13:32 | Outpatient (CLI) | payer OTHER, MEDICAID ==
[~2022-08-06] VITALS: Ht 154.9 cm; Wt 59.1 kg
[~2022-08-06 13:32] MED LIST changes: +ALBUTEROL SULFATE 2.5MG/0.5ML INH NEB SOLN INH PRN; +EPINEPHrine INJ 1 MG/ML 1ML AMP IM PRN; +diphenhydrAMINE 50MG/ML VIAL IV PRN; +methylPREDNISolone 125MG 2ML VIAL IV PRN
[2022-08-06 14:25] VITALS: BP 139/54
[2022-08-06] MEDS ORDERED: NS 1,000 ML IV SCH (14:30)
[2022-08-06] MEDS ORDERED: FERRIC CARBOXYMALTOSE INJ 750 MG in NS 250 ML (>50kg) IV ONE ×3 (14:30)
[2022-08-06 16:15] VITALS: BP 148/69
== END 2022-08-06 16:15 | disposition home or self-care (01) ==
LOC: M INFU 13:32
PROVIDERS: ATTEND Internal Medicine Hematology
DX: D50.9 Iron deficiency anemia, unspecified (principal)
CPT/HCPCS: 96365; J1439

== ENCOUNTER → 2022-08-09 | Outpatient (CLI) | payer OTHER, MEDICAID ==
[~2022-08-09] MED LIST changes: -ALBUTEROL SULFATE 2.5MG/0.5ML INH NEB SOLN INH PRN; -EPINEPHrine INJ 1 MG/ML 1ML AMP IM PRN; -diphenhydrAMINE 50MG/ML VIAL IV PRN; -methylPREDNISolone 125MG 2ML VIAL IV PRN
== END ==
LOC: M WHC 13:59
PROVIDERS: ATTEND Internal Medicine Hematology
DX: M81.0 Age-related osteoporosis without current pathological fracture (principal); Z13.820 Encounter for screening for osteoporosis

== ENCOUNTER 2022-08-20 14:05 | Outpatient (CLI) | payer OTHER, MEDICAID ==
[~2022-08-20] VITALS: Ht 154.9 cm; Wt 59.1 kg
[2022-08-20 14:10] VITALS: BP 153/65
[2022-08-20] MEDS ORDERED: NS 1,000 ML IV SCH (14:30)
[2022-08-20] MEDS ORDERED: EPINEPHrine INJ 1 MG/ML 1ML AMP IM PRN (14:30)
[2022-08-20] MEDS ORDERED: methylPREDNISolone 125MG 2ML VIAL IV PRN (14:30)
[2022-08-20] MEDS ORDERED: FERRIC CARBOXYMALTOSE INJ 750 MG in NS 250 ML (>50kg) IV ONE ×3 (14:30)
[2022-08-20] MEDS ORDERED: diphenhydrAMINE 50MG/ML VIAL IV PRN (14:30)
[2022-08-20] MEDS ORDERED: ALBUTEROL SULFATE 2.5MG/0.5ML INH NEB SOLN INH PRN (14:30)
== END 2022-08-20 15:50 | disposition home or self-care (01) ==
LOC: M INFU 14:05
PROVIDERS: ATTEND Internal Medicine Hematology
DX: E61.1 Iron deficiency (principal)
CPT/HCPCS: 96365; J1439

== ENCOUNTER 2022-11-27 09:07 | Outpatient (CLI) | payer OTHER ==
[~2022-11-27] VITALS: Ht 154.9 cm; Wt 59.1 kg
[~2022-11-27 09:07] MED LIST changes: -ROSU20TA5 PO; +ROSU20TA61 PO
[2022-11-27 09:49] VITALS: BP 190/76; TEMP 98.2; O2SAT 98
[2022-11-27 10:05] VITALS: BP 140/72; TEMP 97.7; O2SAT 100
[2022-11-27 11:40] VITALS: BP 140/74; TEMP 98.4; O2SAT 97
[2022-11-27 12:05] VITALS: BP 138/76; TEMP 97.8; O2SAT 98
== END 2022-11-27 14:05 ==
LOC: M INFU 09:07
PROVIDERS: ATTEND Internal Medicine Hematology
DX: D50.9 Iron deficiency anemia, unspecified (principal)
CPT/HCPCS: 36430; P9016

== ENCOUNTER 2022-12-07 10:53 | Outpatient (CLI) | payer MEDICAID, OTHER ==
[~2022-12-07] VITALS: Ht 147.3 cm; Wt 62.0 kg
[~2022-12-07 10:53] MED LIST changes: +ALBUTEROL SULFATE 2.5MG/0.5ML INH NEB SOLN INH PRN; +EPINEPHrine INJ 1 MG/ML 1ML AMP IM PRN; +diphenhydrAMINE 50MG/ML VIAL IV PRN; +methylPREDNISolone 125MG 2ML VIAL IV PRN
[2022-12-07 11:05] VITALS: BP 182/76; O2SAT 99
[2022-12-07] MEDS ORDERED: NS 1,000 ML IV SCH (11:10)
[2022-12-07] MEDS ORDERED: IRON SUCROSE 200 MG in NS 100 ML OVER 1 HR IV ONE (11:15)
[2022-12-07 12:35] VITALS: BP 160/80; O2SAT 100
== END 2022-12-07 12:45 | disposition home or self-care (01) ==
LOC: M INFU 10:53
PROVIDERS: ATTEND Internal Medicine Hematology
DX: D50.0 Iron deficiency anemia secondary to blood loss (chronic) (principal)
CPT/HCPCS: 96365; J1756

== ENCOUNTER → 2022-12-13 | Outpatient (CLI) | payer OTHER, MEDICAID ==
[~2022-12-13] MED LIST changes: -ALBUTEROL SULFATE 2.5MG/0.5ML INH NEB SOLN INH PRN; -EPINEPHrine INJ 1 MG/ML 1ML AMP IM PRN; -diphenhydrAMINE 50MG/ML VIAL IV PRN; -methylPREDNISolone 125MG 2ML VIAL IV PRN
[2022-12-13 15:55] LABS: HEMATOCRIT 30.8 % (36.0-47.0); HEMOGLOBIN 9.6 g/dl (12.0-15.5); MEAN CORPUSCULAR HEMOGLOBIN 29.8 pg (27.0-33.0); MEAN CORPUSCULAR HGB CONC 31.2 g/dl (32.0-36.5); MEAN CORPUSCULAR VOLUME 95.7 fl (80.0-96.0); PLATELET COUNT, AUTOMATED 188 10^3/uL (150-450); RED BLOOD COUNT 3.22 10^6/uL (4.00-5.40); WHITE BLOOD COUNT 9.1 10^3/uL (4.0-10.0)
== END ==
LOC: M PLALAB 13:52
PROVIDERS: ATTEND Internal Medicine Hematology
DX: D64.9 Anemia, unspecified (principal)

== ENCOUNTER 2022-12-14 11:39 | Outpatient (CLI) | payer OTHER ==
[~2022-12-14] VITALS: Ht 148.6 cm; Wt 59.6 kg
[~2022-12-14 11:39] MED LIST changes: +ALBUTEROL SULFATE 2.5MG/0.5ML INH NEB SOLN INH PRN; +EPINEPHrine INJ 1 MG/ML 1ML AMP IM PRN; +diphenhydrAMINE 50MG/ML VIAL IV PRN; +methylPREDNISolone 125MG 2ML VIAL IV PRN
[2022-12-14 11:53] VITALS: BP 107/54; O2SAT 99
[2022-12-14] MEDS ORDERED: NS 1,000 ML IV SCH (11:55)
[2022-12-14] MEDS ORDERED: IRON SUCROSE 200 MG in NS 100 ML OVER 1 HR IV ONE (12:00)
[2022-12-14 13:50] VITALS: BP 116/65; O2SAT 98
== END 2022-12-14 13:50 ==
LOC: M INFU 11:39
PROVIDERS: ATTEND Internal Medicine Hematology
DX: D50.0 Iron deficiency anemia secondary to blood loss (chronic) (principal)
CPT/HCPCS: 96365; J1756

== ENCOUNTER → 2023-01-01 | Outpatient (CLI) | payer OTHER ==
[~2023-01-01] MED LIST changes: -ALBUTEROL SULFATE 2.5MG/0.5ML INH NEB SOLN INH PRN; -EPINEPHrine INJ 1 MG/ML 1ML AMP IM PRN; -diphenhydrAMINE 50MG/ML VIAL IV PRN; -methylPREDNISolone 125MG 2ML VIAL IV PRN
[2023-01-01 12:38] LABS: BASO % 0.2 % (0.0-1.0); EOS # 0.1 10^3/uL (0.0-0.5); EOS % 1.3 % (0.0-3.0); HEMATOCRIT 28.3 % (36.0-47.0); LYMPH # 1.2 10^3/uL (1.5-5.0); LYMPH % 14.7 % (24.0-44.0); MEAN CORPUSCULAR HEMOGLOBIN 31.3 pg (27.0-33.0); MEAN CORPUSCULAR HGB CONC 31.8 g/dl (32.0-36.5); MEAN CORPUSCULAR VOLUME 98.3 fl (80.0-96.0); MONO # 0.3 10^3/uL (0.0-0.8); MONO % 3.5 % (2.0-8.0); NEUTROPHILS # 6.7 10^3/uL (1.5-8.5); NEUTROPHILS % 80.1 % (36.0-66.0); PLATELET COUNT, AUTOMATED 173 10^3/uL (150-450); RED BLOOD COUNT 2.88 10^6/uL (4.00-5.40); WHITE BLOOD COUNT 8.4 10^3/uL (4.0-10.0)
[2023-01-01 12:54] LABS: CHOLESTEROL RISK RATIO 2.69 (<5); HDL CHOLESTEROL 45.2 MG/DL (>40); HEMOGLOBIN A1c 5.4 % (4.0-6.0); LDL CHOLESTEROL 24.6 MG/DL (<100); NON-HDL-C 76.8 MG/DL; PERCENT SATURATION 16.7 % (13.2-45.0)
[2023-01-01 12:56] LABS: TOTAL 25(OH) VITAMIN D 80.3 NG/ML (20.0-100.0)
[2023-01-02 17:10] LABS: FREE KAPPA LIGHT CHAINS SERUM 104.3 mg/L (3.3-19.4); FREE LAMBDA LIGHT CHAINS SERUM 30.1 mg/L (5.7-26.3); KAPPA/LAMBDA RATIO SERUM 3.47 (0.26-1.65)
== END ==
LOC: M LAB 11:21
PROVIDERS: ATTEND Internal Medicine Hematology
DX: D47.2 Monoclonal gammopathy (principal); D64.9 Anemia, unspecified; I10 Essential (primary) hypertension; Z79.899 Other long term (current) drug therapy

== ENCOUNTER → 2023-01-04 | Outpatient (CLI) | payer OTHER ==
[~2023-01-04] VITALS: Ht 147.3 cm; Wt 59.6 kg
[~2023-01-04] MED LIST changes: +ALBUTEROL SULFATE 2.5MG/0.5ML INH NEB SOLN INH PRN; +EPINEPHrine INJ 1 MG/ML 1ML AMP IM PRN; +IRON SUCROSE 200 MG in NS 100 ML OVER 1 HR IV ONE; +NS 1,000 ML IV SCH; +diphenhydrAMINE 50MG/ML VIAL IV PRN; +methylPREDNISolone 125MG 2ML VIAL IV PRN
[2023-01-04 13:20] VITALS: BP 126/56; O2SAT 100
[2023-01-04 15:20] VITALS: BP 153/66; O2SAT 100
== END ==
LOC: M INFU 13:12
PROVIDERS: ATTEND Internal Medicine Hematology
DX: D50.0 Iron deficiency anemia secondary to blood loss (chronic) (principal)
CPT/HCPCS: 96365; J1756

== ENCOUNTER → 2023-05-22 | Outpatient (CLI) | payer OTHER, MEDICAID ==
[~2023-05-22] MED LIST changes: -ALBUTEROL SULFATE 2.5MG/0.5ML INH NEB SOLN INH PRN; -EPINEPHrine INJ 1 MG/ML 1ML AMP IM PRN; -IRON SUCROSE 200 MG in NS 100 ML OVER 1 HR IV ONE; +MECL-209 PO; -MECL1TAB31 PO; -NS 1,000 ML IV SCH; -diphenhydrAMINE 50MG/ML VIAL IV PRN; -methylPREDNISolone 125MG 2ML VIAL IV PRN
[2023-05-22 13:45] LABS: BASO % 0.2 % (0.0-1.0); EOS # 0.1 10^3/uL (0.0-0.5); EOS % 0.6 % (0.0-3.0); HEMOGLOBIN 9.2 g/dl (12.0-15.5); LYMPH # 0.9 10^3/uL (1.5-5.0); LYMPH % 6.7 % (24.0-44.0); MEAN CORPUSCULAR HEMOGLOBIN 30.8 pg (27.0-33.0); MEAN CORPUSCULAR HGB CONC 31.7 g/dl (32.0-36.5); MONO # 0.6 10^3/uL (0.0-0.8); MONO % 4.2 % (2.0-8.0); NEUTROPHILS # 11.9 10^3/uL (1.5-8.5); NEUTROPHILS % 87.6 % (36.0-66.0); PLATELET COUNT, AUTOMATED 254 10^3/uL (150-450); RED BLOOD COUNT 2.99 10^6/uL (4.00-5.40); WHITE BLOOD COUNT 13.6 10^3/uL (4.0-10.0)
== END ==
LOC: M PLALAB 09:09
PROVIDERS: ATTEND Internal Medicine Hematology
DX: C16.9 Malignant neoplasm of stomach, unspecified (principal)

== ENCOUNTER 2023-05-24 11:30 | Outpatient (CLI) | payer OTHER, MEDICAID ==
[~2023-05-24] VITALS: Ht 147.3 cm; Wt 55.9 kg
[~2023-05-24 11:30] MED LIST changes: +ALBUTEROL SULFATE 2.5MG/0.5ML INH NEB SOLN INH PRN; +EPINEPHrine INJ 1 MG/ML 1ML AMP IM PRN; +NS 1,000 ML IV SCH; +diphenhydrAMINE 50MG/ML VIAL IV PRN; +methylPREDNISolone 125MG 2ML VIAL IV PRN
[2023-05-24 11:45] VITALS: BP 154/67; O2SAT 95
[2023-05-24] MEDS ORDERED: IRON SUCROSE 200 MG in NS 100 ML OVER 1 HR IV ONE (12:00)
[2023-05-24 13:32] VITALS: BP 142/64; O2SAT 99
== END 2023-05-24 13:45 | disposition home or self-care (01) ==
LOC: M INFU 11:30
PROVIDERS: ATTEND Internal Medicine Hematology
DX: D50.0 Iron deficiency anemia secondary to blood loss (chronic) (principal)
CPT/HCPCS: 96365; J1756

== ENCOUNTER 2023-06-05 19:14 | Observation (INO) | payer OTHER, MEDICAID ==
[~2023-06-05] VITALS: Ht 152.4 cm; Wt 57.3 kg
[~2023-06-05 19:14] MED LIST changes: -BRIL90TA PO; -COMB0.2S OD; -LEVO88TA3 PO; -NITR100C2 PO; -PANT40TA29 PO; -PARO5TAB PO; -REFR0.5D8 OU; -SUCR1TAB56 PO; -XALA0.007 OD
[2023-06-05] MEDS ORDERED: LIDOCAINE 2% 5ML JELLY UROJET TOP ONE (20:35)
[2023-06-05 21:38] LABS: BASO % 0.2 % (0.0-1.0); EOS # 0.1 10^3/uL (0.0-0.5); EOS % 0.8 % (0.0-3.0); HEMATOCRIT 24.9 % (36.0-47.0); HEMOGLOBIN 7.8 g/dl (12.0-15.5); LYMPH # 1.3 10^3/uL (1.5-5.0); LYMPH % 11.7 % (24.0-44.0); MEAN CORPUSCULAR HGB CONC 31.3 g/dl (32.0-36.5); MEAN CORPUSCULAR VOLUME 98.8 fl (80.0-96.0); MONO # 0.6 10^3/uL (0.0-0.8); MONO % 4.8 % (2.0-8.0); NEUTROPHILS # 9.4 10^3/uL (1.5-8.5); NEUTROPHILS % 82.1 % (36.0-66.0); PLATELET COUNT, AUTOMATED 187 10^3/uL (150-450); RED BLOOD COUNT 2.52 10^6/uL (4.00-5.40); WHITE BLOOD COUNT 11.5 10^3/uL (4.0-10.0)
[2023-06-05 21:50] LABS: CK-MB VALUE MASS < 1.0 NG/ML (<3.6)
[2023-06-05 21:52] LABS: CPK CREATINE PHOSPHOKINASE < 15 U/L (34-145)
[2023-06-05 21:52] LABS: ALBUMIN 2.4 G/DL (3.2-5.2); ALKALINE PHOSPHATASE 52 U/L (46-116); ALT/SGPT < 9 U/L (7.0-40); AST/SGOT 8 U/L (<34); BILIRUBIN,DIRECT < 0.1 MG/DL (<0.4); BILIRUBIN,TOTAL 0.2 MG/DL (0.3-1.2); BLOOD UREA NITROGEN 23 MG/DL (9-23); CALCIUM LEVEL 8.2 MG/DL (8.3-10.6); CARBON DIOXIDE LEVEL 27 MMOL/L (20-31); CHLORIDE LEVEL 111 MMOL/L (98-107); CREATININE FOR GFR 1.09 MG/DL (0.55-1.30); GLOMERULAR FILTRATION RATE 50.7 (>32); GLUCOSE, FASTING 159 MG/DL (74-106); POTASSIUM SERUM 3.8 MMOL/L (3.5-5.1); SODIUM LEVEL 142 MMOL/L (136-145); TOTAL PROTEIN 5.5 G/DL (5.7-8.2)
[2023-06-05 21:54] LABS: THYROID STIMULATING HORMONE 4.404 uIU/ML (0.55-4.78)
[2023-06-05 22:15] LABS: RSV AMPLIFICATION NEGATIVE (NEGATIVE)
[2023-06-05] MEDS ORDERED: cefTRIAXone SOD 1 GM in D5W MINI-BAG PLUS 50 ML IV ONE (22:40)
[2023-06-05] MEDS ORDERED: BRIL90TA PO ×2 (23:18→23:38)
[2023-06-05] MEDS ORDERED: LEVO88TA3 PO (23:18)
[2023-06-05 23:25] VITALS: BP 131/61; TEMP 97; O2SAT 100
[2023-06-05] MEDS ORDERED: COMB0.2S OD (23:38)
[2023-06-05] MEDS ORDERED: SUCR1TAB56 PO (23:38)
[2023-06-05] MEDS ORDERED: XALA0.007 OD (23:38)
[2023-06-05] MEDS ORDERED: PARO5TAB PO (23:38)
[2023-06-05] MEDS ORDERED: NITR100C2 PO (23:38)
[2023-06-05] MEDS ORDERED: PANT40TA29 PO (23:38)
[2023-06-05 23:41] VITALS: BP 141/62; TEMP 97.5; O2SAT 99
[2023-06-05] MEDS ORDERED: REFR0.5D8 OU (23:41)
[2023-06-05] MEDS ORDERED: HOME MED LIST COMPLETE! XX SCH (23:45)
[2023-06-06] VITALS (10 sets, daily range): BP systolic 81–169; BP diastolic 51–70; TEMP 96.6–97.5; O2SAT 95–100
[2023-06-06] MEDS ORDERED: GLUCOSE 4GM CHEW TABLET PO PRN ×2 (01:10→19:15)
[2023-06-06] MEDS ORDERED: DEXTROSE 50% 50ML SYRINGE IV PRN ×2 (01:10→19:15)
[2023-06-06] MEDS ORDERED: GLUCAGON INJ 1MG VIAL SC PRN ×2 (01:10→19:15)
[2023-06-06] MEDS: NS 1,000 ML IV SCH ×2 (05:45→12:42)
[2023-06-06] MEDS: LEVOTHYROXINE 88MCG TABLET (0.088 MG) PO SCH (06:58)
[2023-06-06] MEDS: INSULIN LISPRO (NovoLOG) PER UNIT SC SCH ×3 (07:30→20:25)
[2023-06-06] MEDS: PARoxetine 10MG TABLET PO SCH (08:40)
[2023-06-06] MEDS: SUCRALFATE 1 GM TAB PO SCH ×3 (08:40→20:28)
[2023-06-06] MEDS ORDERED: PANTOPRAZOLE 40MG TAB (PROTONIX) PO SCH (09:00)
[2023-06-06 12:19] LABS: BLOOD UREA NITROGEN 15 MG/DL (9-23); CALCIUM LEVEL 7.7 MG/DL (8.3-10.6); CARBON DIOXIDE LEVEL 21 MMOL/L (20-31); CHLORIDE LEVEL 110 MMOL/L (98-107); GLOMERULAR FILTRATION RATE > 60.0 (>32); GLUCOSE, FASTING 137 MG/DL (74-106); MAGNESIUM LEVEL 1.7 MG/DL (1.8-2.4); POTASSIUM SERUM 5.2 MMOL/L (3.5-5.1); SODIUM LEVEL 139 MMOL/L (136-145)
[2023-06-06] MEDS ORDERED: MORPHINE 10MG/0.5ML ORAL CONCENTRATE SOLUTION U/D SL PRN (14:45)
[2023-06-06] MEDS ORDERED: SCOPOLAMINE 1MG TRANSDERMAL PATCH TOP PRN (14:45)
[2023-06-06] MEDS ORDERED: LORazepam 1 MG TAB PO PRN (14:45)
[2023-06-06 19:54] LABS: BASO % 0.3 % (0.0-1.0); EOS # 0.1 10^3/uL (0.0-0.5); EOS % 0.9 % (0.0-3.0); HEMATOCRIT 36.8 % (36.0-47.0); LYMPH # 1.1 10^3/uL (1.5-5.0); LYMPH % 10.2 % (24.0-44.0); MEAN CORPUSCULAR HEMOGLOBIN 30.9 pg (27.0-33.0); MEAN CORPUSCULAR HGB CONC 33.2 g/dl (32.0-36.5); MEAN CORPUSCULAR VOLUME 93.2 fl (80.0-96.0); MONO # 0.4 10^3/uL (0.0-0.8); MONO % 3.8 % (2.0-8.0); NEUTROPHILS # 9.2 10^3/uL (1.5-8.5); NEUTROPHILS % 84.2 % (36.0-66.0); PLATELET COUNT, AUTOMATED 171 10^3/uL (150-450); RED BLOOD COUNT 3.95 10^6/uL (4.00-5.40); WHITE BLOOD COUNT 10.9 10^3/uL (4.0-10.0)
[2023-06-06 20:02] LABS: HEMOGLOBIN 12.2 g/dl (12.0-15.5)
[2023-06-06] MEDS: MAG SULF 1GM/100ML (MAG RUN) 1 GM in IV 1 EA IV SCH ×2 (20:09→21:08)
[2023-06-06 20:24] LABS: BLOOD UREA NITROGEN 17 MG/DL (9-23); CALCIUM LEVEL 7.8 MG/DL (8.3-10.6); CARBON DIOXIDE LEVEL 22 MMOL/L (20-31); CHLORIDE LEVEL 112 MMOL/L (98-107); CREATININE FOR GFR 0.62 MG/DL (0.55-1.30); GLOMERULAR FILTRATION RATE > 60.0 (>32); GLUCOSE, FASTING 165 MG/DL (74-106); SODIUM LEVEL 143 MMOL/L (136-145)
[2023-06-06] MEDS: ROSUVASTATIN 10 MG TAB (CRESTOR) PO SCH (20:28)
[2023-06-06] MEDS ORDERED: INSULIN LISPRO (NovoLOG) PER UNIT SC SCH (21:00)
[2023-06-06] MEDS ORDERED: LATANOPROST 0.005% OPHTH SOLN 2.5 ML OD SCH (21:00)
[2023-06-06] MEDS ORDERED: ROSUVASTATIN 10 MG TAB (CRESTOR) PO SCH (21:00)
[2023-06-06] MEDS: PANTOPRAZOLE 40MG VIAL IV SCH (22:07)
[2023-06-06] MEDS: LATANOPROST 0.005% OPHTH SOLN 2.5 ML OD SCH (22:07)
[2023-06-06] MEDS ORDERED: cefTRIAXone SOD 1 GM in D5W MINI-BAG PLUS 50 ML IV SCH (23:00)
[2023-06-07] MEDS: LEVOTHYROXINE 88MCG TABLET (0.088 MG) PO SCH (06:22)
[2023-06-07 06:52] VITALS: BP 119/54; O2SAT 96
[2023-06-07] MEDS: PANTOPRAZOLE 40MG VIAL IV SCH ×2 (08:20→21:36)
[2023-06-07] MEDS: SUCRALFATE 1 GM TAB PO SCH ×3 (08:21→21:36)
[2023-06-07] MEDS: PARoxetine 10MG TABLET PO SCH (08:21)
[2023-06-07] MEDS: INSULIN LISPRO (NovoLOG) PER UNIT SC SCH ×4 (08:21→21:00)
[2023-06-07 12:55] LABS: BASO % 0.2 % (0.0-1.0); EOS # 0.1 10^3/uL (0.0-0.5); HEMATOCRIT 36.5 % (36.0-47.0); LYMPH # 1.3 10^3/uL (1.5-5.0); LYMPH % 14.7 % (24.0-44.0); MEAN CORPUSCULAR HEMOGLOBIN 30.5 pg (27.0-33.0); MEAN CORPUSCULAR HGB CONC 32.9 g/dl (32.0-36.5); MEAN CORPUSCULAR VOLUME 92.9 fl (80.0-96.0); MONO # 0.4 10^3/uL (0.0-0.8); MONO % 4.8 % (2.0-8.0); NEUTROPHILS # 7.1 10^3/uL (1.5-8.5); NEUTROPHILS % 78.5 % (36.0-66.0); PLATELET COUNT, AUTOMATED 165 10^3/uL (150-450); RED BLOOD COUNT 3.93 10^6/uL (4.00-5.40)
[2023-06-07 13:26] LABS: BLOOD UREA NITROGEN 13 MG/DL (9-23); CALCIUM LEVEL 7.9 MG/DL (8.3-10.6); CARBON DIOXIDE LEVEL 25 MMOL/L (20-31); CHLORIDE LEVEL 111 MMOL/L (98-107); CREATININE FOR GFR 0.61 MG/DL (0.55-1.30); GLOMERULAR FILTRATION RATE > 60.0 (>32); GLUCOSE, FASTING 110 MG/DL (74-106); POTASSIUM SERUM 3.9 MMOL/L (3.5-5.1); SODIUM LEVEL 143 MMOL/L (136-145)
[2023-06-07 14:16] VITALS: BP 128/44; O2SAT 95
[2023-06-07 20:54] VITALS: BP 116/56; O2SAT 96
[2023-06-07] MEDS: ROSUVASTATIN 10 MG TAB (CRESTOR) PO SCH (21:35)
[2023-06-07] MEDS: LATANOPROST 0.005% OPHTH SOLN 2.5 ML OD SCH (21:36)
[2023-06-07] MEDS: CEFDINIR 300 MG CAP (OMNICEF) PO SCH (21:36)
[2023-06-08 06:02] VITALS: BP 121/53; O2SAT 97
[2023-06-08] MEDS: LEVOTHYROXINE 88MCG TABLET (0.088 MG) PO SCH (06:31)
[2023-06-08] MEDS: PANTOPRAZOLE 40MG VIAL IV SCH (09:00)
[2023-06-08] MEDS: CEFDINIR 300 MG CAP (OMNICEF) PO SCH ×2 (09:01→20:51)
[2023-06-08] MEDS: SUCRALFATE 1 GM TAB PO SCH ×3 (09:01→20:51)
[2023-06-08] MEDS: INSULIN LISPRO (NovoLOG) PER UNIT SC SCH ×5 (09:01→20:44)
[2023-06-08] MEDS: PARoxetine 10MG TABLET PO SCH (09:01)
[2023-06-08 14:15] VITALS: BP 96/42; O2SAT 99
[2023-06-08 14:16] VITALS: BP 96/42; O2SAT 98
[2023-06-08 19:54] VITALS: BP 104/50; O2SAT 99
[2023-06-08] MEDS: LATANOPROST 0.005% OPHTH SOLN 2.5 ML OD SCH (20:51)
[2023-06-08] MEDS: PANTOPRAZOLE 40MG TAB (PROTONIX) PO SCH (20:51)
[2023-06-08] MEDS: ROSUVASTATIN 10 MG TAB (CRESTOR) PO SCH (20:51)
[2023-06-09] MEDS: LEVOTHYROXINE 88MCG TABLET (0.088 MG) PO SCH (05:37)
[2023-06-09 06:09] VITALS: BP 147/54; O2SAT 98
[2023-06-09] MEDS: PANTOPRAZOLE 40MG TAB (PROTONIX) PO SCH (08:26)
[2023-06-09] MEDS: PARoxetine 10MG TABLET PO SCH (08:26)
[2023-06-09] MEDS: SUCRALFATE 1 GM TAB PO SCH (08:26)
[2023-06-09] MEDS: CEFDINIR 300 MG CAP (OMNICEF) PO SCH (08:26)
[2023-06-09] MEDS: INSULIN LISPRO (NovoLOG) PER UNIT SC SCH ×2 (08:27→12:35)
[2023-06-09] MEDS ORDERED: CEFD300CAP PO (13:54)
== END 2023-06-09 14:20 | disposition home or self-care (01) ==
LOC: M ED 19:14 → INTOOBSV 06-06 01:02 → M ED INP 06-06 01:02 → M MS5PR 06-06 07:50
PROVIDERS: ADMIT Family Medicine; ATTEND Internal Medicine
DX: G93.41 Metabolic encephalopathy (principal); C16.9 Malignant neoplasm of stomach, unspecified; K92.1 Melena; D62 Acute posthemorrhagic anemia; N39.0 Urinary tract infection, site not specified; R53.0 Neoplastic (malignant) related fatigue; Z86.73 Personal history of transient ischemic attack (TIA), and cerebral infarction without residual deficits; F41.9 Anxiety disorder, unspecified; F32.A Depression, unspecified; E78.5 Hyperlipidemia, unspecified; I95.1 Orthostatic hypotension; E03.9 Hypothyroidism, unspecified; K21.9 Gastro-esophageal reflux disease without esophagitis; E11.9 Type 2 diabetes mellitus without complications; Z79.4 Long term (current) use of insulin; Z79.899 Other long term (current) drug therapy
CPT/HCPCS: 36415; 36430; 70450; 71045; 80048; 80076; 81001; 82140; 82550; 82553; 83605; 83735; 84443; 84484; 85025; 86850; 86900; 86901; 86920; 87040; 87088; 87186; 87631; 93005; 93041; 94760; 96361; 96365; 96366; 96375; 96376; 97116; 97161; 97165; 99285; C9113; G0378; J0696; J1815; J3475; P9016

== ENCOUNTER → 2023-06-05 | Outpatient (CLI) | payer OTHER, MEDICAID ==
[~2023-06-05] MED LIST changes: -ALBUTEROL SULFATE 2.5MG/0.5ML INH NEB SOLN INH PRN; +BRIL90TA PO; +COMB0.2S OD; -EPINEPHrine INJ 1 MG/ML 1ML AMP IM PRN; +LEVO88TA3 PO; +NITR100C2 PO; -NS 1,000 ML IV SCH; +PANT40TA29 PO; +PARO5TAB PO; +REFR0.5D8 OU; +SUCR1TAB56 PO; +XALA0.007 OD; -diphenhydrAMINE 50MG/ML VIAL IV PRN; -methylPREDNISolone 125MG 2ML VIAL IV PRN
[2023-06-05 13:39] LABS: BASO % 0.2 % (0.0-1.0); EOS % 0.1 % (0.0-3.0); HEMOGLOBIN 8.9 g/dl (12.0-15.5); LYMPH % 5.5 % (24.0-44.0); MEAN CORPUSCULAR HEMOGLOBIN 30.8 pg (27.0-33.0); MEAN CORPUSCULAR HGB CONC 30.7 g/dl (32.0-36.5); MEAN CORPUSCULAR VOLUME 100.3 fl (80.0-96.0); MONO # 0.6 10^3/uL (0.0-0.8); MONO % 3.2 % (2.0-8.0); NEUTROPHILS # 16.2 10^3/uL (1.5-8.5); NEUTROPHILS % 90.4 % (36.0-66.0); PLATELET COUNT, AUTOMATED 234 10^3/uL (150-450); RED BLOOD COUNT 2.89 10^6/uL (4.00-5.40); WHITE BLOOD COUNT 17.9 10^3/uL (4.0-10.0)
== END ==
LOC: M LAB 11:56
PROVIDERS: ATTEND Internal Medicine Hematology
DX: C16.9 Malignant neoplasm of stomach, unspecified (principal)